=== PATIENT | male | born 1945 | race African-American/Black ===

== ENCOUNTER 2017-10-07 20:50 | Inpatient (IN) ==
[2017-10-07] MEDS ORDERED: ONDANSETRON 4 MG/2 ML VIAL IV STA (21:38)
[2017-10-07] MEDS ORDERED: MORPHINE 2 MG/1 ML SYRINGE IV STA (21:38)
[2017-10-07] MEDS ORDERED: ONDANSETRON 4 MG/2 ML VIAL ONE (22:32)
[2017-10-07] MEDS ORDERED: MORPHINE 2 MG/1 ML SYRINGE ONE (22:32)
[2017-10-07 22:33] LABS: Basophils % 0.6 % (0.0-0.8); Eosinophils % 0.6 % (0.00-10.9); Hematocrit 37.6 VOL% (42.0-52.0); Hemoglobin 12.4 GM/DL (14.0-18.0); Immature Granulocytes % 0.3 %; Immature Granulocytes Absolute 0.02 #; Lymphocytes # 1.9 10*3/uL (1.4-4.0); Lymphocytes % 27.6 % (21.2-54.2); Mean Corpuscular Hemoglobin 29 PG (27-34); Mean Platelet Volume 11.6 FL (9.6-12.0); Monocytes % 14.4 % (1.7-12.7); Neutrophils % 56.5 % (38.7-73.9); Platelet Count 234 T/CUMM (130-400); Red Blood Count 4.32 MC/CUMM (3.8-5.5); Red Cell Distribution Width 13.2 % (9.3-17.3)
[2017-10-07 22:44] LABS: Amorphous Crystals,Urine Occasional /HPF (Few); Apearance,Urine CLEAR (Clear); Bilirubin,Urine Negative (Negative); Blood, Urine Negative (Negative); Glucose,Urine (UA) Negative (Negative); Ketones,Urine 5 mg/dL (Negative); Mucus,Urine Occasional /LPF (Occasional); Nitrite,Urine Negative (Negative); Protein,Urine 100 MG/DL; RBC,Urine 1 /HPF (0-4); Squamous Epithelial Cell,Urine Occasional /HPF (0-10); Urine Color Yellow (Yellow); Urine Specific Gravity 1.027 (1.001-1.035); WBC,Urine 2 /HPF (0-6)
[2017-10-07 22:54] LABS: Alanine Aminotransferase 13 U/L (16-61); Albumin 3.7 G/DL (3.4-5.0); Alkaline Phosphatase 125 U/L (45-117); Aspartate Amino Transferase 17 U/L (0-37); Blood Urea Nitrogen 17 MG/DL (7-18); Calcium 9.4 MG/DL (8.5-10.1); Glucose 98 MG/DL (74-106); Osmolality,Calculated 280.4 MOS/KG (273-304); Potassium 4.3 MMOL/L (3.5-5.1); Sodium 140 MMOL/L (136-145); Total Protein 7.5 G/DL (6.4-8.3); Troponin I Only < 0.015 NG/ML (0.00-0.045)
[2017-10-08] MEDS ORDERED: hydrALAZINE 20 MG/1 ML VIAL IV STA (01:46)
[2017-10-08] MEDS ORDERED: hydrALAZINE 20 MG/1 ML VIAL ONE (01:49)
[2017-10-08] MEDS ORDERED: ONDANSETRON 4 MG/2 ML VIAL IV PRN (02:45)
[2017-10-08] MEDS ORDERED: MORPHINE 2 MG/1 ML SYRINGE IV PRN (02:45)
[2017-10-08] MEDS: hydrALAZINE 20 MG/1 ML VIAL IV PRN ×2 (05:24→16:51)
[2017-10-08 07:30] LABS: Basophils % 0.3 % (0.0-0.8); Eosinophils % 0.2 % (0.00-10.9); Hematocrit 41.3 VOL% (42.0-52.0); Hemoglobin 13.9 GM/DL (14.0-18.0); Immature Granulocytes % 0.5 %; Immature Granulocytes Absolute 0.05 #; Lymphocytes # 2.1 10*3/uL (1.4-4.0); Lymphocytes % 19.6 % (21.2-54.2); Mean Corpuscular HGB Conc 33.7 GM/DL (32-36); Mean Corpuscular Hemoglobin 29 PG (27-34); Mean Corpuscular Volume 87.1 FL (87-102); Mean Platelet Volume 11.8 FL (9.6-12.0); Monocytes # 1.2 10*3/uL (0.11-0.8); Monocytes % 11.5 % (1.7-12.7); Neutrophils # 7.3 10*3/uL (1.4-7.4); Neutrophils % 67.9 % (38.7-73.9); Platelet Count 269 T/CUMM (130-400); Red Blood Count 4.74 MC/CUMM (3.8-5.5); Red Cell Distribution Width 13.5 % (9.3-17.3); White Blood Count 10.7 T/CUMM (4-12)
[2017-10-08 08:06] LABS: Albumin 4.3 G/DL (3.4-5.0); Calcium 9.7 MG/DL (8.5-10.1); Osmolality,Calculated 278.7 MOS/KG (273-304); Potassium 3.5 MMOL/L (3.5-5.1); Total Protein 8.2 G/DL (6.4-8.3)
[2017-10-08] MEDS: PROPRANOLOL 20 MG TABLET PO SCH ×2 (09:17→20:52)
[2017-10-08] MEDS: BACLOFEN 10 MG TABLET PO SCH ×3 (09:17→20:52)
[2017-10-08] MEDS: LOSARTAN 50 MG TABLET PO SCH (09:17)
[2017-10-08] MEDS: PANTOPRAZOLE 40 MG TABLET PO SCH (09:17)
[2017-10-08 09:49] LABS: PT Patient Result 10.7 SECS
[2017-10-08] MEDS ORDERED: SODIUM CHLORIDE 0.45% 1,000 ML IV SCH (11:30)
[2017-10-08] MEDS ORDERED: DIAZEPAM 5 MG TABLET PO ONE (11:32)
[2017-10-09] MEDS: hydrALAZINE 20 MG/1 ML VIAL IV PRN ×2 (00:40→04:44)
[2017-10-09 06:08] LABS: Basophils % 0.4 % (0.0-0.8); Eosinophils % 0.4 % (0.00-10.9); Hematocrit 40.3 VOL% (42.0-52.0); Hemoglobin 13.7 GM/DL (14.0-18.0); Immature Granulocytes % 0.4 %; Immature Granulocytes Absolute 0.03 #; Lymphocytes # 1.7 10*3/uL (1.4-4.0); Lymphocytes % 21.6 % (21.2-54.2); Mean Corpuscular Hemoglobin 29 PG (27-34); Mean Corpuscular Volume 84.5 FL (87-102); Mean Platelet Volume 11.9 FL (9.6-12.0); Monocytes # 1.1 10*3/uL (0.11-0.8); Monocytes % 13.8 % (1.7-12.7); Neutrophils % 63.4 % (38.7-73.9); Platelet Count 254 T/CUMM (130-400); Red Blood Count 4.77 MC/CUMM (3.8-5.5); Red Cell Distribution Width 13.5 % (9.3-17.3); White Blood Count 7.8 T/CUMM (4-12)
[2017-10-09 06:47] LABS: Albumin 3.7 G/DL (3.4-5.0); Calcium 9.6 MG/DL (8.5-10.1); Osmolality,Calculated 280.4 MOS/KG (273-304); Potassium 3.9 MMOL/L (3.5-5.1); Total Protein 7.7 G/DL (6.4-8.3)
[2017-10-09] MEDS: PANTOPRAZOLE 40 MG TABLET PO SCH (09:35)
[2017-10-09] MEDS: BACLOFEN 10 MG TABLET PO SCH (09:35)
[2017-10-09] MEDS: PROPRANOLOL 20 MG TABLET PO SCH (09:35)
[2017-10-09] MEDS: LOSARTAN 50 MG TABLET PO SCH (09:35)
[2017-10-09] MEDS ORDERED: NIFEdipine 10 MG CAPSULE PO PRN (10:28)
[2017-10-09] MEDS ORDERED: PROPRANOLOL 40 MG TABLET PO SCH (11:00)
[2017-10-09 12:20] VITALS: BP 163/82
== END 2017-10-09 14:40 | disposition home health service (06) | DRG 436 ==
LOC: EDBD → EDUNIT# → N.ED 20:50 → N.EDINP 10-08 02:46 → N.4E 10-08 03:22
PROVIDERS: ADMIT Internal Medicine; ATTEND Internal Medicine